=== PATIENT | male | born 1975 | race Caucasian/White ===

== ENCOUNTER → 2016-07-26 | Outpatient (CLI) | payer BC ==
--- NOTE | 2016-07-26 19:40 | XR ---
EXAMINATION TYPE: XR lumbosacral spine min 4V DATE OF EXAM: 07/26/2016 5:42 PM COMPARISON: NONE HISTORY: Back pain TECHNIQUE: 5 views FINDINGS: There is a slight levoscoliosis. There is mild narrowing at L3-4 disc. There is mild spurri ng of the endplates. Posterior elements are intact. Sacroiliac joints appear normal. IMPRESSION: Mild degenerative disc changes mainly at L3-4. No fracture.
== END | disposition home or self-care (01) ==
LOC: RADXRMAIN 17:17
PROVIDERS: ATTEND Family Medicine
DX: M47.816 Spondylosis without myelopathy or radiculopathy, lumbar region (principal)
CPT/HCPCS: 72110